=== PATIENT | female | born 1995 | race Caucasian/White ===

== ENCOUNTER → 2017-07-23 | Outpatient (CLI) | payer OTHER ==
[2017-07-23 15:49] LABS: CH 29.2; CHCM 34.3; HCT 37.6 % (34.0-46.0); HDW 2.44; HGB 12.5 gm/dL (11.4-16.0); MCH 28.4 pg (25.0-35.0); MCHC 33.2 g/dL (31.0-37.0); MCV 85.6 fL (80.0-100.0); Mean Platelet Volume 8.1; RBC 4.39 m/uL (3.80-5.40); RDW 13.4 % (11.5-15.5); WBC 13.7 k/uL (4.0-11.0)
[2017-07-23 15:56] LABS: Glucose 88 mg/dL (74-99); Non-African American GFR(MDRD) >60 (>60 ml/min/1.73 sqM)
[2017-07-23 16:28] LABS: Hepatitis B Surface Ag Index 0.07
[2017-07-24 01:33] LABS: Treponemal Ab Non-Reactive (Non-Reactive)
== END | disposition home or self-care (01) ==
LOC: LABWHC1 15:27
PROVIDERS: ATTEND Obstetrics & Gynecology
DX: Z34.01 Encounter for supervision of normal first pregnancy, first trimester (principal); R53.83 Other fatigue
CPT/HCPCS: 36415; 82565; 82947; 85027; 86762; 86780; 86850; 86900; 86901; 87340; 87390

== ENCOUNTER → 2017-09-24 | Outpatient (CLI) | payer OTHER ==
--- NOTE | 2017-09-11 07:41 | US ---
EXAMINATION TYPE: US OB anatomy transabd DATE OF EXAM: 09/10/2017 COMPARISON: NONE HISTORY: O36.62X0 Large for Dates LGA TECHNIQUE: Transabdominal (TA) EXAM MEASUREMENTS: GESTATIONAL AGE / DATING Physician Established: (19 weeks/1 days) EDC: 02/03/18 Dates by LMP: unknown Dates by First Scan: no prior Dates by Current Scan for: (19 weeks/3 days) EDC: 02/01/18 SURVEY IUP: Single PLACENTA: Anterior PREVIA: No previa JIAN: 10.9 cm Normal CERVICAL LENGTH (transabdominal: norm > 3.0cm): 3.3 cm BIOMETRY PRESENTATION: Vertex LIE: Longitudinal BPD: 4.5 cm 19 weeks / 5 days HC: 16.6 cm 19 weeks / 3 days AC: 13.6 cm 19 weeks / 1 days FL: 3.0 cm 19 weeks / 2 days ESTIMATED WEIGHT IN GRAMS: 278 grams ESTIMATED WEIGHT IN LBS/OZ: 0 lbs. 10 oz. WEIGHT PERCENTAGE BASED ON ESTABLISHED DATE: 48 % HC/AC: 1.22 Normal FL/AC: 22% Normal HEART RATE: 153 bpm RHYTHM: Normal ANATOMY SEEN (within normal limits): * Lateral Vent (< 1 cm) 0.8 cm * Cisterna Magna (< 1.1 cm) 0.3 cm * Nuchal Fold (< 0.6 cm) 0.3 cm * Cerebellum (varies with age) 1.7 cm Choroid Plexus (bilateral) Midline Falx Cavus Septi Pellucidi Four Chamber Heart Outflow tracts: LVOT/RVOT Stomach Situs Nose / Lips Diaphragm Kidneys (bilateral) Bladder Cord Insert Three Vessel Cord Arms (bilateral) Legs (bilateral) ANATOMY NOT SEEN: due to position Longitudinal Spine Transverse Spine IMPRESSION: Single live IUP 19wks/3days with KRISTEN of 02/01/18. Dates are concordant with the physician established dates. Patient scheduled for OB callback for spine on 09/24/17 at 2:20pm
--- NOTE | 2017-09-24 14:48 | US ---
EXAMINATION TYPE: US OB Call Back DATE OF EXAM: 09/24/2017 COMPARISON: NONE CLINICAL HISTORY: OB CALLBACK. GESTATIONAL AGE / DATING Dates by Initial Survey Scan: (21 weeks/1 days) EDC: 02/03/2018 HEART RATE: 142 bpm RHYTHM: Normal ANATOMY SEEN (second anatomic survey look): Longitudinal Spine: wnl Transverse Spine: wnl IMPRESSION: Subsequent follow-up exam appears normal
== END | disposition home or self-care (01) ==
LOC: RADUSWWP 09-10 14:06
PROVIDERS: ATTEND Obstetrics & Gynecology
DX: O36.62X0 Maternal care for excessive fetal growth, second trimester, not applicable or unspecified (principal); Z3A.19 19 weeks gestation of pregnancy
CPT/HCPCS: 76811

== ENCOUNTER 2018-01-11 10:39 | Outpatient (CLI) | payer OTHER ==
[2018-01-11 11:24] VITALS: BP 126/77; PULSE 96; RESP 16; TEMP 98
[2018-01-11 11:52] LABS: ALT 19 U/L (9-52); AST 18 U/L (14-36); Blood Urea Nitrogen 12 mg/dL (7-17); LDH 441 U/L (313-618); Uric Acid 6.6 mg/dL (3.7-7.4)
[2018-01-11 11:58] LABS: Basophils % (A) 0 %; Eosinophils # (A) 0.1 k/uL (0-0.7); Eosinophils % (A) 1 %; HCT 38.6 % (34.0-46.0); HGB 12.6 gm/dL (11.4-16.0); Lymphocytes # (A) 1.3 k/uL (1.0-4.8); Lymphocytes % (A) 13 %; MCHC 32.7 g/dL (31.0-37.0); MCV 82.6 fL (80.0-100.0); Monocytes # (A) 0.6 k/uL (0-1.0); Monocytes % (A) 6 %; Neutrophils % (A) 78 %; Platelet Count 238 k/uL (150-450); RBC 4.67 m/uL (3.80-5.40); RDW 13.7 % (11.5-15.5); WBC 10.2 k/uL (4.0-11.0)
[2018-01-11 15:13] LABS: Appearance,Urine Clear (Clear); Bacteria,Urine Rare /hpf; Bilirubin,Urine Negative (Negative); Blood,Urine Negative (Negative); Color,Urine Yellow; Glucose,Urine (UA) Negative (Negative); Ketones,Urine Negative (Negative); Leukocyte Esterase,Urine Small (Negative); Mucus,Urine Rare /hpf; Nitrite,Urine Negative (Negative); Protein,Urine Negative (Negative); RBC,Urine <1 /hpf (0-5); Specific Gravity,Urine 1.007 (1.001-1.035); Squamous Epithelial Cell,Urine 2 /hpf (0-4); Urobilinogen,Urine <2.0 mg/dL (<2.0); WBC,Urine 2 /hpf (0-5)
--- NOTE | 2018-01-11 17:40 | P.MSEPDOC ---
Presenting Problems - Arrival Data Date of Arrival on Unit: 01/11/18 Time of Arrival on Unit: 10:42 Mode of Transport: Ambulatory - Complaint OB-Reason for Admission/Chief Complaint: PIH Comment: headache this weekend, elevated pressures at home, RUQ pain, nausea, swelling Medical History - Information : 1 Para: 0 Term: 0 : 0 Abortions: Spontaneous or Elective: 0 Number of Living Children: 0 - Gestational Age Gestational Age by KRISTEN (wks/days): 36 Weeks and 5 Days Review of Systems - Review of Systems Constitutional: No problems Breast: No problems ENT: No problems Cardiovascular: No problems Respiratory: No problems Gastrointestinal: No problems Genitourinary: No problems Musculoskeletal: No problems Neurological: No problems Skin: No problems Vital Signs - Temperature Temperature: 98.0 F Temperature Source: Temporal Artery Scan - Pulse Right Pulse Rate: 96 Pulse Assessment Method: Automatic Cuff - Respirations Respiratory Rate: 16 Oxygen Delivery Method: Room Air - Blood Pressure Right Arm Blood Pressure: 126/77 Blood Pressure Mean: 93 Blood Pressure Source: Automatic Cuff Medical Screen Scoring (Pre) - Cervical Exam Dilation: Exam Deferred - Uterine Contractions Frequency: > 5 minutes apart = 1 Duration: > 40 seconds = 2 Intensity: N/A - Maternal Vital Signs Maternal Temperature: N/A Maternal Blood Pressure: N/A Signs of Preeclampsia: Nausea/Vomiting = 1, Epigastric Pain = 1, Edema of Face = 4 Maternal Respirations: N/A - Pain Assessment Pain Location and Character: Right, Upper, Abdomen Pain Scale Used: Numeric (1 - 10) Pain Intensity: 3 Pain Description: *Acute, Aching Pain Frequency: Constant Pain Duration: 1 Pain Duration Units: Days Pain Behavior: None Exhibited - Maternal Trauma Maternal Trauma: N/A - Assessment Baseline FHR: 160 Heart Rate - NICHD Category: Category I (Normal) = 0 NST: Reactive Position: N/A Station: N/A - Total Score Total Score (Pre): 9 - Level of Risk Level of Risk: Medium (6-9) Physician Notification (Pre) - Physician Notified Physician Notified Date: 01/11/18 Physician Notified Time: 11:15 Spoke With: Latrice Soliman Order Received: Yes (DAMIAN foss) Medical Screen Scoring (Post) - Assessment Heart Rate: 135 Heart Rate - NICHD Category: Category I (Normal) = 0 NST: Reactive - Total Score Total Score (Post): 0 - Post Treatment Level of Risk Post Treatment Level of Risk: Low (0-5) Physician Notification (Post) - Physician Notified Physician Notified Date: 01/11/18 Physician Notified Time: 15:15 Spoke With: Latrice Soliman Order Received: Yes (Dicharge to home) Disposition - Disposition OB Disposition: Discharge to home, Written follow up instructions reviewed Discharge Date: 01/11/18 Discharge Time: 15:18 I agree with the RN Medical Screening Exam: Yes Risk & Benefit of care provided described in d/c instruction: Yes Diagnosis: HEADACHE
== END 2018-01-11 15:18 | disposition home or self-care (01) ==
LOC: FBPOP 10:39
PROVIDERS: ATTEND Obstetrics & Gynecology
DX: O26.93 Pregnancy related conditions, unspecified, third trimester (principal); R51 Headache; R03.0 Elevated blood-pressure reading, without diagnosis of hypertension; R11.0 Nausea; R10.11 Right upper quadrant pain; Z3A.36 36 weeks gestation of pregnancy
CPT/HCPCS: 59025; 81001; 82565; 83615; 84450; 84460; 84520; 84550; 85025; 99215

== ENCOUNTER 2018-01-20 16:37 | Inpatient (IN) | payer OTHER ==
[2018-01-20 17:23] LABS: Basophils % (A) 0 %; Eosinophils # (A) 0.1 k/uL (0-0.7); Eosinophils % (A) 1 %; HCT 37.9 % (34.0-46.0); HGB 12.5 gm/dL (11.4-16.0); Lymphocytes # (A) 1.9 k/uL (1.0-4.8); Lymphocytes % (A) 16 %; MCH 27.5 pg (25.0-35.0); MCV 83.4 fL (80.0-100.0); Monocytes # (A) 0.8 k/uL (0-1.0); Monocytes % (A) 6 %; Neutrophils # (A) 8.9 k/uL (1.3-7.7); Neutrophils % (A) 74 %; Platelet Count 259 k/uL (150-450); RBC 4.54 m/uL (3.80-5.40); RDW 14.3 % (11.5-15.5); WBC 11.9 k/uL (4.0-11.0)
[2018-01-20 17:23] LABS: Amorphous Sediment,Urine Occasional /hpf; Appearance,Urine Clear (Clear); Bacteria,Urine Rare /hpf; Bilirubin,Urine Negative (Negative); Blood,Urine Small (Negative); Color,Urine Yellow; Glucose,Urine (UA) Negative (Negative); Ketones,Urine Negative (Negative); Leukocyte Esterase,Urine Negative (Negative); Mucus,Urine Rare /hpf; Nitrite,Urine Negative (Negative); PH, Urine 6.5 (5.0-8.0); Protein,Urine Trace (Negative); RBC,Urine 27 /hpf (0-5); Squamous Epithelial Cell,Urine 5 /hpf (0-4); Urobilinogen,Urine <2.0 mg/dL (<2.0); WBC,Urine 4 /hpf (0-5)
[2018-01-20 17:30] LABS: INR 0.9 (<1.2); Prothrombin Time 9.3 sec (9.0-12.0)
[2018-01-20 17:32] LABS: ALT 21 U/L (9-52); AST 20 U/L (14-36); Blood Urea Nitrogen 11 mg/dL (7-17); LDH 424 U/L (313-618); Uric Acid 6.3 mg/dL (3.7-7.4)
[2018-01-20] MEDS ORDERED: LIDOCAINE 1% (PF) 10 MG/ML (30 ML SDV) SQ PRN (18:24)
[2018-01-20] MEDS ORDERED: TERBUTALINE 1 MG/ML VIAL SQ PRN (18:24)
[2018-01-20] MEDS ORDERED: METHYLERGONOVINE 0.2 MG/ML 1 ML AMP IM PRN (18:24)
[2018-01-20] MEDS ORDERED: OXYTOCIN 10 UNIT/ML 1 ML VIAL IM PRN (18:24)
[2018-01-20] MEDS ORDERED: CARBOPROST TROMETHAMINE 250 MCG/ML 1 ML AMP IM PRN (18:24)
[2018-01-20 18:52] VITALS: BMI 35.8
[2018-01-21] MEDS ORDERED: OXYTOCIN 20 UNITS/1000 ML NS 1,000 ML IV SCH ×2 (06:00→18:15)
[2018-01-21] MEDS: LACTATED RINGERS 1,000 ML IV SCH ×2 (07:05→13:09)
--- NOTE | 2018-01-21 09:14 | P.HPOB ---
History of Present Illness H&P Date: 01/21/18 Chief Complaint: Headache 22-year-old presented at to my office at 38 weeks for a normal scheduled visit. Her blood pressure was slightly elevated and she was complaining of an intermittent headache and some right upper quadrant pain. Assented to triage for some labs and blood pressure checks as well as an NST. The NST was reactive , blood pressures ranged from 124 -139/74-90. The preeclamptic labs showed a PC ratio of 0.6. This is consistent with mild preeclampsia. Her cervix is 1-2 cm dilated, 80% effaced, and -2 station. She is evette irregularly. heart tones are 150-155 with mild variability and reactive. She will undergo induction of labor for mild preeclampsia at this time. Review of Systems All systems: negative Constitutional: Denies chills, Denies fever Eyes: denies blurred vision, denies pain Ears, nose, mouth and throat: Denies headache, Denies sore throat Cardiovascular: Denies chest pain, Denies shortness of breath Respiratory: Denies cough Gastrointestinal: Denies abdominal pain, Denies diarrhea, Denies nausea, Denies vomiting Genitourinary: Denies dysuria, Denies hematuria Musculoskeletal: Denies myalgias Integumentary: Denies pruritus, Denies rash Neurological: Denies numbness, Denies weakness Psychiatric: Denies anxiety, Denies depression Endocrine: Denies fatigue, Denies weight change Past Medical History Past Medical History: No Reported History Additional Past Medical History / Comment(s): Obstetric history: This is her first and she's been seeing me since 10 weeks gestation. Blood type is O-, antibodies negative, rubella immune, treponema antibody negative, HIV nonreactive, hepatitis B negative. She declined quad screen, normal anatomy ultrasound. Normal 1 hour glucose tolerance test and Hunter was given on 2016 at 28 weeks and 1 day. GBS negative. History of Any Multi-Drug Resistant Organisms: None Reported Past Surgical History: No Surgical Hx Reported Past Anesthesia/Blood Transfusion Reactions: No Reported Reaction Past Psychological History: No Psychological Hx Reported Smoking Status: Former smoker Past Alcohol Use History: None Reported Past Drug Use History: None Reported - Past Family History Mother Family Medical History: No Reported History Medications and Allergies Home Medications Medication Instructions Recorded Confirmed Type Ranitidine HCl [Zantac] 75 mg PO BID 01/11/18 01/20/18 History Pnv,Calcium 72/Iron/Folic Acid 1 tab PO 01/20/18 History [ Plus Tablet] Allergies Allergy/AdvReac Type Severity Reaction Status Date / Time No Known Allergies Allergy Verified 01/11/18 10:55 Exam Osteopathic Statement: *. No significant issues noted on an osteopathic structural exam other than those noted in the History and Physical/Consult. - Vital Signs Vital signs: Vital Signs Temp Pulse Resp BP 01/21/18 05:12 98.0 F 101 H 16 154/95 01/21/18 00:00 98.1 F 87 16 134/87 01/20/18 20:00 108 H 16 144/87 01/20/18 16:48 110 H 16 139/90 Intake and Output 01/20/18 01/21/18 01/21/18 22:59 06:59 14:59 Other: # Voids 2 1 Weight 97.721 kg Heart: Regular rate and rhythm Lungs: Clear to auscultation bilaterally Abdomen: Soft, nontender, Extremities: Negative Homans sign, 3+ edema bilateral lower extremities, 1+ DTRs Results Result Diagrams: 01/20/18 17:11 01/20/18 17:11 Abnormal Lab Results - Last 24 Hours (Table) 01/20/18 01/20/18 01/20/18 Range/Units 17:10 17:10 17:11 WBC 11.9 H (4.0-11.0) k/uL Neutrophils # 8.9 H (1.3-7.7) k/uL Urine Protein Trace H (Negative) Urine Blood Small H (Negative) Urine RBC 27 H (0-5) /hpf Ur Squamous Epith Cells 5 H (0-4) /hpf Amorphous Sediment Occasional H (None) /hpf Urine Bacteria Rare H (None) /hpf Urine Mucus Rare H (None) /hpf U Random Total Protein 38 H (<12) mg/dL Assessment and Plan (1) Mild preeclampsia Current Visit: Yes Status: Acute Code(s): O14.00 - MILD TO MODERATE PRE- ECLAMPSIA, UNSPECIFIED TRIMESTER SNOMED Code(s): 21778858 Plan: 1. Induction of labor with amniotomy and Pitocin 2. Anticipate normal vaginal delivery
[2018-01-21] MEDS ORDERED: BUPIVACAINE (PF) 0.25% 30 ML VIAL ONE (12:39)
[2018-01-21] MEDS ORDERED: SODIUM CHLORIDE 0.9% 100 ML BAG ONE (12:39)
[2018-01-21] MEDS ORDERED: fentaNYL (PF) 50 MCG/ML 5 ML AMP ONE (12:39)
[2018-01-21] MEDS ORDERED: BUPIVACAINE (PF) 0.25% 25 ML, fentaNYL (PF) 200 MCG in SODIUM CHLORIDE 0.9% 71 ML EPIDURAL ONE (12:51)
[2018-01-21] MEDS ORDERED: diphenhydrAMINE 50 MG/ML 1 ML VIAL IVP PRN ×2 (18:07)
[2018-01-21] MEDS ORDERED: Rhogam IMMUNE GLOBULIN 1,500 UNIT/1 ML IM ONE (18:07)
[2018-01-21] MEDS ORDERED: HYDROCORTISONE 2.5% RECTAL CREAM 30 GM TUBE RECTAL PRN (18:07)
[2018-01-21] MEDS ORDERED: WITCH HAZEL 1 EACH MED..PAD TOPICAL PRN (18:07)
[2018-01-21] MEDS ORDERED: BENZOCAINE/MENTHOL SPRAY 1 GM/SPRAY AEROSOL TOPICAL PRN (18:07)
[2018-01-21] MEDS ORDERED: diphenhydrAMINE 50 MG CAP PO PRN (18:07)
[2018-01-21] MEDS ORDERED: ZOLPIDEM 5 MG TAB PO PRN (18:07)
[2018-01-21] MEDS ORDERED: ACETAMINOPHEN TAB 325 MG TAB PO PRN (18:07)
[2018-01-21] MEDS ORDERED: Acetaminophen-Codeine 300-30mg TAB PO PRN ×2 (18:07)
[2018-01-21] MEDS ORDERED: SIMETHICONE 80 MG CHEWABLE PO PRN (18:07)
[2018-01-21] MEDS ORDERED: diphenhydrAMINE 25 MG CAP PO PRN (18:07)
[2018-01-21] MEDS ORDERED: LANOLIN CREAM 5 GM TUBE TOPICAL PRN (18:07)
--- NOTE | 2018-01-21 18:10 | P.PROBDLV ---
Vaginal Delivery Note - . Vaginal Delivery Note: 22-year-old presented at 38 weeks and 1 day for induction of labor due to mild preeclampsia. Her cervix is 1-2 cm dilated, 80% effaced, and -2 station. She is evette irregularly. heart tones 150-155 with moderate variability and reactive. Pitocin was started at 6 AM and amniotomy was performed at 705, clear fluid noted. She progressed about 4 cm and did get an epidural around noon. Her cervix was completely dilated at 1652. She pushed, and delivered a viable male infant over intact perineum under epidural anesthesia at 1748. Head delivered OA, nuchal cord 1 easily reduced, anterior shoulder which was the left shoulder delivered gentle downward traction followed by posterior shoulder and rest of body. Nose and mouth bulb suctioned , cord clamped and cut, infant placed on mother's abdomen. Apgars 9, 9, weight 7 lbs. 5 oz. Placenta delivered spontaneously, intact with three-vessel cord at 1752. Vagina, cervix, and perineum were inspected. First-degree midline laceration was repaired with 3-0 Vicryl. Estimated blood loss 200 mL. Mother and baby in stable condition.
[2018-01-21] MEDS: IBUPROFEN 600 MG TAB PO PRN (18:40)
[2018-01-21] MEDS: SENNOSIDES-DOCUSATE SODIUM 1 EACH TAB PO SCH (20:53)
[2018-01-22] MEDS: IBUPROFEN 600 MG TAB PO PRN ×3 (02:26→23:17)
--- NOTE | 2018-01-22 09:13 | P.PNOBGVD ---
Subjective - Subjective Principal diagnosis: S/P NVD PPD #1 Interval history: Patient seen and examined. Denies fever chills, nausea vomiting, headache, chest pain, shortness of breath or calf pain. Patient reports: Reports appetite normal, Reports voiding normally, Reports pain well controlled, Reports ambulating normally : doing well Objective - Latest Vital Signs Latest vital signs: Vital Signs Temp Pulse Resp BP Pulse Ox 01/22/18 08:00 97.7 F 99 16 126/76 01/22/18 04:00 98.2 F 101 H 16 121/73 98 01/22/18 00:00 98.6 F 102 H 18 135/83 97 01/21/18 19:59 95 18 142/78 100 01/21/18 19:29 98.2 F 97 18 147/87 97 01/21/18 18:59 103 H 16 158/89 01/21/18 18:44 100 16 148/87 01/21/18 18:29 108 H 16 147/85 01/21/18 18:14 113 H 16 150/83 01/21/18 17:59 98.1 F 126 H 16 174/88 Intake and Output 01/21/18 01/22/18 01/22/18 22:59 06:59 14:59 Other: # Voids 1 - Exam Lungs: bilateral: normal Chest: Normal S1, Normal S2 Extremities: Present: normal Abdomen: Present: normal appearance, soft Uterus: Present: normal, firm Assessment and Plan (1) Mild preeclampsia Current Visit: Yes Status: Acute Code(s): O14.00 - MILD TO MODERATE PRE- ECLAMPSIA, UNSPECIFIED TRIMESTER SNOMED Code(s): 24555618 (2) Normal vaginal delivery Current Visit: Yes Status: Acute Code(s): O80 - ENCOUNTER FOR FULL-TERM UNCOMPLICATED DELIVERY SNOMED Code(s): 23268922 Plan: 1. Continue to monitor blood pressure, is much better today 2. Anticipate discharge home tomorrow.
[2018-01-22] MEDS: SENNOSIDES-DOCUSATE SODIUM 1 EACH TAB PO SCH ×2 (09:58→17:47)
[2018-01-23] MEDS: SENNOSIDES-DOCUSATE SODIUM 1 EACH TAB PO SCH (08:01)
[2018-01-23 08:04] VITALS: BP 117/82; PULSE 92; RESP 16; TEMP 97.6
--- NOTE | 2018-01-23 08:06 | P.DS ---
Providers Date of admission: 01/20/18 18:15 Expected date of discharge: 01/23/18 Attending physician: Karie Jean Baptiste Primary care physician: Stated None - Discharge Diagnosis(es) (1) Mild preeclampsia Current Visit: Yes Status: Acute (2) Normal vaginal delivery Current Visit: Yes Status: Acute Hospital Course: Patient presented for induction of labor due to mild preeclampsia. She underwent a normal vaginal delivery. Her blood pressures since delivery have come down significantly. She denies headache, nausea, vomiting, chest pain, shortness of breath fever chills or calf pain. She'll be discharged home day #2 in stable condition to follow-up with me in 6 weeks. Plan - Discharge Summary Discharge Rx Participant: No New Discharge Prescriptions: New Acetaminophen-Codeine 300-30mg [Tylenol w/codeine #3] 1 - 2 each PO Q4HR PRN #30 tab PRN Reason: Moderate To Severe Pain Ibuprofen [Motrin] 600 mg PO Q6HR PRN #30 tab PRN Reason: Mild Pain Or Fever >= 100.5 No Action Ranitidine HCl [Zantac] 75 mg PO BID Pnv,Calcium 72/Iron/Folic Acid [ Plus Tablet] 1 tab PO Discharge Medication List Ranitidine HCl [Zantac] 75 mg PO BID 01/11/18 [History] Pnv,Calcium 72/Iron/Folic Acid [ Plus Tablet] 1 tab PO 01/20/18 [History ] Acetaminophen-Codeine 300-30mg [Tylenol w/codeine #3] 1 - 2 each PO Q4HR PRN # 30 tab 01/23/18 [Rx] Ibuprofen [Motrin] 600 mg PO Q6HR PRN #30 tab 01/23/18 [Rx] Follow up Appointment(s)/Referral(s): Karie Jean Baptiste DO [Doctor of Osteopathic Medicine] - 6 Weeks Discharge Disposition: HOME SELF-CARE
[2018-01-23] MEDS: IBUPROFEN 600 MG TAB PO PRN (08:08)
== END 2018-01-23 12:10 | disposition home or self-care (01) | DRG 775 ==
LOC: FBPOP 16:37 → 4FBP 18:15
PROVIDERS: ADMIT Obstetrics & Gynecology; ATTEND Obstetrics & Gynecology
PROC: 10E0XZZ Delivery of Products of Conception, External Approach (ICD-10-PCS; principal; 2018-01-20)
PROC: 0HQ9XZZ Repair Perineum Skin, External Approach (ICD-10-PCS; 2018-01-20)
DX: O14.04 Mild to moderate pre-eclampsia, complicating childbirth (principal); O69.81X0 Labor and delivery complicated by cord around neck, without compression, not applicable or unspecified; Z37.0 Single live birth; O70.0 First degree perineal laceration during delivery; Z3A.38 38 weeks gestation of pregnancy; Z87.891 Personal history of nicotine dependence
CPT/HCPCS: 59025; 81001; 82565; 82570; 83615; 84156; 84450; 84460; 84520; 84550; 85025; 85461; 85610; 85730; 88307; 99215